=== PATIENT | male | born 1985 | race Two or more races ===

== ENCOUNTER 2022-07-23 11:03 | Day surgery (SDC) | payer OTHER ==
[~2022-07-23] VITALS: Ht 180.3 cm; Wt 77.1 kg
[~2022-07-23 11:03] MED LIST: CEPHALEXIN500 M1 PO; DETROL LA2 MG PO; ULTRAM50 MG PO
[2022-07-23] MEDS ORDERED: PYRIDIUM DS200 MG PO (16:52)
[2022-07-23] MEDS ORDERED: MELOXICAM15 MG PO (16:53)
[2022-07-23] MEDS ORDERED: CEPHALEXIN500 MG PO (16:53)
[2022-07-23] MEDS ORDERED: GABAPENTIN400 MG PO (16:54)
== END 2022-07-23 18:40 | disposition home or self-care (01) ==
LOC: CIR.AMB 11:03
PROVIDERS: ATTEND Surgery
DX: C67.9 Malignant neoplasm of bladder, unspecified (principal); N47.1 Phimosis; Z20.822 Contact with and (suspected) exposure to COVID-19

== ENCOUNTER 2022-08-05 09:00 | Emergency (ER) | payer OTHER ==
[~2022-08-05] VITALS: Ht 180.3 cm; Wt 72.6 kg
[~2022-08-05 09:00] MED LIST changes: +CEPHALEXIN500 MG PO; +GABAPENTIN400 MG PO; +MELOXICAM15 MG PO; +PYRIDIUM DS200 MG PO
== END 2022-08-05 10:48 | disposition home or self-care (01) ==
LOC: ER 09:00
DX: R33.8 Other retention of urine (principal); T83.018A Breakdown (mechanical) of other urinary catheter, initial encounter

== ENCOUNTER 2022-11-15 06:35 | Day surgery (SDC) | payer OTHER | END 2022-11-15 17:40 | disposition home or self-care (01) | LOC: CIR.AMB 06:35 | PROVIDERS: ATTEND Urology | DX: C67.9 Malignant neoplasm of bladder, unspecified (principal); Z20.822 Contact with and (suspected) exposure to COVID-19 ==